=== PATIENT | female | born 1985 | race Two or more races ===

== ENCOUNTER 2020-07-13 14:38 | Outpatient (REF) | payer OTHER, SELFPAY ==
[2020-07-13 15:49] LABS: MANUAL DIFF FLAG NO
[2020-07-13 15:53] LABS: Basophils Percent Auto 0.8 % (0-2); Eosinophils Absolute Auto 0.1 X10*3/uL (0.0-0.4); Eosinophils Percent Auto 1.4 % (0-4); Hematocrit 34.5 % (37-47); Hemoglobin 11.2 g/dl (12.0-16.0); Lymphocytes Absolute Auto 2.1 X10*3/uL (1.2-4.9); Lymphocytes Percent Auto 56.8 % (20-40); Mean Corpuscular HGB Conc 32.5 g/dl (31.0-35.0); Mean Corpuscular Hemoglobin 27.1 pg (27.0-33.0); Mean Corpuscular Volume 83.5 fL (80-98); Mean Platelet Volume 9.6 fL (9.4-12.3); Monocytes Absolute Auto 0.3 X10*3/uL (0.1-1.2); Monocytes Percent Auto 8.4 % (2-11); Neutrophils Absolute Auto 1.2 X10*3/uL (2.0-8.3); Neutrophils Percent Auto 32.6 % (45-73); Platelet Count 327 X10*3/uL (160-400); Red Blood Count 4.13 X10*6/uL (4.20-5.50); Red Cell Distribution Width 13.8 % (11.0-16.0); White Blood Count 3.7 X10*3/uL (4.8-10.8)
[2020-07-13 16:41] LABS: Syphilis Screen Nonreactive (Nonreactive)
[2020-07-13 17:16] LABS: Erythrocyte Sedimentation Rate 9 MM/HR (0-20)
[2020-07-14 13:38] LABS: Lyme Abs Screen <0.90 index
[2020-07-15 13:46] LABS: Anti Nuclear Antibody Screen NEGATIVE (NEGATIVE)
== END 2020-07-13 14:39 | disposition home or self-care (01) ==
LOC: HO.LAB 14:38
PROVIDERS: PCP Internal Medicine; Visit Provider Psychiatry & Neurology Neurology
DX: R51.9 Headache, unspecified (principal)
CPT/HCPCS: 36415; 85025; 85652; 86038; 86039; 86617; 86618; 86780